=== PATIENT | female | born 1950 | race Two or more races ===

== ENCOUNTER 2022-02-12 08:40 | Emergency (ER) | payer OTHER ==
[~2022-02-12] VITALS: Ht 160 cm; Wt 67.0 kg
[2022-02-12 09:08] VITALS: BP 130/64
[2022-02-12] MEDS ORDERED: KETOROLAC TROMETH 30 MG/ML 1ML VIAL IM ONE (09:45)
[2022-02-12] MEDS ORDERED: IBUP600T27 PO (09:48)
== END 2022-02-12 10:00 | disposition home or self-care (01) ==
LOC: ER 08:40
DX: M75.31 Calcific tendinitis of right shoulder (principal); Z79.1 Long term (current) use of non-steroidal anti-inflammatories (NSAID)
CPT/HCPCS: 73030; 96372; 99283; J1885